=== PATIENT | female | born 2000 | race Two or more races ===

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

== ENCOUNTER 2020-03-21 01:18 | Inpatient (IN) | payer MEDICAID ==
[~2020-03-21] VITALS: Ht 165.1 cm; Wt 83.9 kg
[~2020-03-21 01:18] MED LIST changes: +FERROUS SULFAT325 MG PO; +MOTRIN600 MG PO
[2020-03-21 02:00] VITALS: Ht 165.1 cm; Wt 83.9 kg
[2020-03-21 02:13] LABS: HEMATOCRIT 38.1 % (36.0-48.0); HEMOGLOBIN 12.9 g/dL (12-16); MCH 30.2 pg (26.0-34.0); MCHC 33.9 g/dL (31.0-37.0); MCV 89.2 fL (80.0-100.0); RBC 4.27 10x6/uL (4.00-5.40); RDW 14.4 % (11.5-14.5); WBC 8.5 10x3/uL (4.8-10.8)
--- NOTE | 2020-03-21 17:03 | NUR ---
PRN TYLENOL ADMINISTERED FOR "SHOCKLIKE" PAIN AND ACHING TO "WHERE MY EPIDURAL WAS" ON PT REQUEST FOR PRN PAIN MEDS, REIVEWED OPTIONS, PT STATES OKAY, ALSO ORDERED AND NOTIFIED GUEST TRAY PER REQUEST WHILE IN PT ROOM. NO OTHER NEEDS VOICED AT PRESENT, CALL LIGHT IN EASY REACH. WILL MONITOR.
--- NOTE | 2020-03-21 19:00 | NUR ---
pt is resting with eyes closed, report given to yves arguello rn.
[2020-03-21 19:32] VITALS: BP 132/68
--- NOTE | 2020-03-21 19:32 | NUR ---
RN TO PT BEDSIDE FOR SHIFT ASSESSEMENT. PT STATES PAIN IS 4-5/10 TO BACK, FUNDUS IS FIRM, MIDLINE, 2 BELOW, SCANT RUBRA LOCHIA, FOB AT BEDSIDE ASLEEP, PT DENEIS ANY NEEDS AT THIS TIME. BED IN LOWEST POSITION, SIDE RAILS UPX2, CALL LIGHT IN REACH.
--- NOTE | 2020-03-21 21:22 | NUR ---
RN TO PT BEDSIDE WITH TORADOL 10MG PO AND TYLENOL 1000 MG PO FOR PT'S BACK PAIN. PT REQUESTS BRIEFS AND A SNACK AT THIS TIME. RN PROVIDED PT WITH ADDITIONAL BRIEFS AND A SANDWICH TRAY. PT DENIES ANY OTHER NEEDS AT THIS TIME.
--- NOTE | 2020-03-21 23:56 | NUR ---
RN TO PT BEDSIDE, PT REQUESTS ICE WATER AT THIS TIME. PT PROVIDED WITH ICE WATER. PT DENIES ANY OTHER NEEDS AT THIS TIME.
--- NOTE | 2020-03-22 01:08 | NUR ---
PT REQUESTS MORE BRIEFS AT THIS TIME, RN TO PT BEDSIDE WITH BRIEFS . PT STATES BACK PAIN IS RETURNING, MAR REVIEWED WITH PT AT THIS TIME. PT DENIES ANY OTHER NEEDS.
--- NOTE | 2020-03-22 04:21 | NUR ---
RN TO PT BEDSIDE TO ADMINISTER TORADOL 10MG PO AND TYLENOL 1000MG PO TO PT FOR BACK PAIN OF 8-9/10 ON PAIN SCALE. PT SUPPLIED WITH ADDITIONAL PADS AT THIS TIME. FOB AT BEDSIDE, INFANT IN NURSERY. NO OTHER NEEDS AT THIS TIME.
[2020-03-22 04:23] VITALS: BP 118/72
[2020-03-22 07:09] LABS: HEMATOCRIT 34.2 % (36.0-48.0); MCH 28.7 pg (26.0-34.0); MCHC 32.2 g/dL (31.0-37.0); MCV 89.3 fL (80.0-100.0); MEAN PLATELET VOLUME 12.6 fL (7.4-10.4); RBC 3.83 10x6/uL (4.00-5.40); RDW 14.6 % (11.5-14.5)
[2020-03-22 07:40] VITALS: BP 113/74
--- NOTE | 2020-03-22 07:40 | NUR ---
THIS RN TO ROOM FOR SHIFT ASSESSMENT. PT SITTING UP IN BED, HOLDING INFANT, AAOx3. PT RATES PAIN 4/10, STATES SHE WOULD LIKE TYLENOL IF IT IS TIME. EMAR REVIEWED AND PT INSTRUCTED ON MED TIMES AND NOT YET DUE, MED TIMES WRITTEN ON BOARD. SHIFT ASSESSMENT COMPLETED, VSS, SEE FLOWSHEET FOR DOC. FF, ML, U/3. SMALL RUBRA LOCHIA, NO CLOTS. PT INSTRUCTED ON S/S TO REPORT REGARDING LOCHIA/CLOTS. PT VERBALIZES UNDERSTANDING, STATES BLEEDING HAS BEEN LESSENING SINCE DELIVERY. PT EXPRESSES CONCERNS OVER STRAINING WITH BOWEL MOVEMENT, STOOL SOFTENER DISCUSSED. D/C TO HOME DISCUSSED WITH PT AND SIG OTHER WELL. BREAKFAST TRAY ORDERED FOR SIG OTHER PER REQUEST. PT DENIES ANY OTHER NEEDS AT THIS TIME. SRUx2, CL IN REACH. WILL CONT TO MONITOR.
--- NOTE | 2020-03-22 09:03 | NUR ---
THIS RN TO ROOM FOR PT CHECK AND ATHLETIC EQUIPMENT CUSTODIAN. PT SITTING UP IN BED, TALKING ON PHONE. COLACE GIVEN ORDERED WITH MED INSTRUCTIONS, UNDERSTANDING VERBALIZED. FRESH ICE WATER GIVEN WELL. PT DENIES ANY NEEDS AT THIS TIME. SRUx2, CL IN REACH.
--- NOTE | 2020-03-22 10:24 | NUR ---
THIS RN TO ROOM FOR PT CHECK AND FOR PAIN ASSESSMENT MED REQUESTED THIS AM IS NOW AVAILABLE PER ORDERED SCHEDULE. PT NOTED TO BE LYING IN BED, SUPINE WITH RIGHT TILT, RESP EVEN AND UNLABORED. SIG OTHER AWAKE ON BEDSIDE COUCH. PT LEFT UNDISTURBED FOR REST. SRUx2, CL IN REACH. WILL CONT TO MONITOR.
--- NOTE | 2020-03-22 11:25 | NUR ---
THIS RN TO ROOM FOR PT CHECK. PT LYING IN BED, SUPINE WITH LEFT TILT, RESP EVEN AND UNLABORED. PT SIG OTHER ON BEDSIDE COUCH, STATES "SHE IS SLEEPING." PT LEFT UNDISTURBED FOR REST. SRUx2, CL IN REACH. WILL CONT TO MONITOR.
--- NOTE | 2020-03-22 12:08 | NUR ---
DISCHARGE INSTRUCTIONS GIVEN. PT VERBALIZES UNDERSTANDING, DENIES QUESTIONS, SIGNS CHART COPIES. PT STATES SHE IS "VERY READY TO GO HOME", PACKING ROOM. PT STATES SHE WOULD LIKE SOME DERMAPLAST IF POSSIBLE. WILL NOTIFY MD OF REQUEST.
--- NOTE | 2020-03-22 12:22 | NUR ---
DR GUTIERREZ TO ROOM FOR ROUNDING, GIVES ORDER TO PROCEED WITH DISCHARGE TO HOME, WELL FOR PT TO HAVE DERMAPLAST REQUESTED, AND CALL IN TORADOL 10MG PO Q6H PRN PAIN, DISPENSE 30, TO PT'S PREFERRED PHARMACY. WILL PROCEED ORDERED.
--- NOTE | 2020-03-22 12:30 | NUR ---
DR GUTIERREZ ON UNIT REVIEWING POST-OP POC WITH THIS RN. ORDER RECEIVED FOR MORPHINE HORSE BREAKER, SEE ORDERS.
--- NOTE | 2020-03-22 12:31 | NUR ---
PRESCRIPTION CALLED TO PT'S PREFERRED PHARMACY [facility] IN [place] REQUESTED AND ORDERED.
--- NOTE | 2020-03-22 12:45 | NUR ---
DERMAPLAST PROVIDED, PT INFORMED MEDS CALLED IN TO [facility] IN [place]. SIG OTHER GETTTING CARSEAT FOR D/C TO HOME. NURSERY RN TO ROOM AT THIS TIME FOR D/C TEACHING.
--- NOTE | 2020-03-22 13:20 | NUR ---
PT TAKEN OFF UNIT VIA W/C BY NURSERY STAFF TO PRIVATE VEHICLE WITH SIG OTHER TO DRIVE HOME, BUCKLED IN CARSEAT. BELONGINGS IN POSSESSION.
[2020-03-23 07:16] LABS: RAPID PLASMA REAGIN Non Reactive (Non Reactive)
== END 2020-03-22 13:20 | disposition home or self-care (01) | DRG 807 ==
LOC: D.LDO 01:18 → D.LD 01:55
PROVIDERS: ADMIT Obstetrics & Gynecology; ATTEND Obstetrics & Gynecology
PROC: 10E0XZZ Delivery of Products of Conception, External Approach (ICD-10-PCS; principal; 2020-03-21)
DX: O80 Encounter for full-term uncomplicated delivery (principal); Z37.0 Single live birth; Z3A.39 39 weeks gestation of pregnancy

== ENCOUNTER 2021-02-06 19:02 | Emergency (ER) | payer MEDICAID ==
[~2021-02-06] VITALS: Ht 165.1 cm; Wt 77.1 kg
[2021-02-06 19:42] VITALS: BP 131/78; Ht 165.1 cm; Wt 77.1 kg
[2021-02-06 20:05] LABS: BASOPHILS 1.1 % (0-2); EOSINOPHILS 2.8 % (0-7); HEMATOCRIT 42.3 % (36.0-48.0); HEMOGLOBIN 14.1 g/dL (12-16); MCH 29.3 pg (26.0-34.0); MCHC 33.4 g/dL (31.0-37.0); MCV 87.7 fL (80.0-100.0); MEAN PLATELET VOLUME 8.9 fL (7.4-10.4); MONOCYTES 6.4 % (2-11); NEUTROPHILS 53.7 % (40-80); RBC 4.82 10x6/uL (4.00-5.40); WBC 6.3 10x3/uL (4.8-10.8)
[2021-02-06 20:07] LABS: PLATELET COUNT 256 10x3/uL (130-400)
[2021-02-06 20:09] LABS: BACTERIA FEW HPF (<MOD); BILIRUBIN NEGATIVE (NEGATIVE); KETONE NEGATIVE mg/dL (< 1+); NITRITE NEGATIVE (NEGATIVE); PH 5.5 (5.0-8.0); SQUAMOUS EPITHELIAL 6 HPF (0-4); UROBILINOGEN NORMAL mg/dL (< 2); WHITE CELLS - URINE 6 HPF (0-4)
[2021-02-06 20:21] LABS: CALC OSMOLALITY 283 mosm/kg (275-300); CALCIUM 8.9 mg/dL (8.5-10.1); CARBON DIOXIDE 28.9 mmol/L (21.0-32.0); CHLORIDE - SERUM 105 mmol/L (98-107); CREATININE - SERUM 0.7 mg/dL (0.6-1.3); GLUCOSE 102 mg/dL (74-106); SODIUM 142 mmol/L (136-145); UREA NITROGEN 14 mg/dL (7-18); eGFR NON AFRICAN AMERICAN > 90 mL/min (90-120)
[2021-02-06 20:49] LABS: ALBUMIN 4.1 g/dL (3.4-5.0); ALKALINE PHOSPHATASE 55 U/L (30-120); ALT (SGPT) 29 U/L (10-68); HCG - QUANTITATIVE (MATERNAL) 7912 mIU/mL; PROTEIN - SERUM 7.5 g/dL (6.4-8.2)
== END 2021-02-06 23:00 | disposition home or self-care (01) ==
LOC: D.ER 19:02
PROVIDERS: Family Medicine
DX: O20.9 Hemorrhage in early pregnancy, unspecified (principal); Z3A.01 Less than 8 weeks gestation of pregnancy